=== PATIENT | female | born 1995 | race Hispanic/Latino ===

== ENCOUNTER 2019-06-14 19:24 | Inpatient (IN) | payer MEDICAID ==
[2019-06-14] MEDS ORDERED: LACTATED RINGERS 1,000 ML ONE (21:51)
[2019-06-14] MEDS ORDERED: BRETHINE IVP PRN (22:36)
[2019-06-14] MEDS ORDERED: STADOL IV PRN (22:36)
[2019-06-14] MEDS ORDERED: XYLOCAINE 2% INFILTRATI ONE (22:36)
[2019-06-14] MEDS ORDERED: NARCAN 0.4 MG/1 ML IV PRN (22:36)
[2019-06-14] MEDS ORDERED: BRETHINE SUB-Q PRN (22:36)
[2019-06-14] MEDS ORDERED: PHENERGAN PO PRN (22:36)
[2019-06-14] MEDS ORDERED: MINERAL OIL PO PRN (22:36)
--- NOTE | 2019-06-14 22:43 | History and Physical Report ---
History of Present Illness Date of examination: 06/14/19 Date of admission: 06/14/19 21:59 Chief complaint: contractions History of present illness: This is a 23 yo EDC 06/18/19 at 39+3 here for contractions. She was noted to be 4 cm previous office visit 3cm. patient walked for 1 hr and changed to 5/100/0 and admitted for labor. She is a patient of Dr. Richelle brandon. Chart reviewed. GBS neg. Patient with hx of placent abruption. She smokes vapes daily. Past History Past Medical History: no pertinent history Past Surgical History: section Family/Genetic History: none Social history: single, smoking (vapes). denies: alcohol abuse, prescription drug abuse - Obstetrical History Expected Date of Delivery: 06/18/19 Actual Gestation: 39 Week(s) 3 Day(s) : 6 Para: 3 Hx # Term Pregnancies: 2 Number of Pregnancies: 1 Spontaneous Abortions: 2 Induced : 0 Number of Living Children: 3 Medications and Allergies Allergies Allergy/AdvReac Type Severity Reaction Status Date / Time No Known Allergies Allergy Unverified 06/14/19 21:45 Review of Systems All systems: negative Genitourinary: contractions - Vital Signs Vital signs: Vital Signs Pulse BP 105 H 109/67 06/14/19 19:35 06/14/19 19:35 Temp Pulse Resp BP Pulse Ox 98.5 F 105 H 18 109/67 06/14/19 19:44 06/14/19 19:44 06/14/19 19:44 06/14/19 19:44 - Physical Exam Breasts: Positive: normal Cardiovascular: Regular rate, Normal S1 Lungs: Positive: Clear to auscultation, Normal air movement Abdomen: Positive: normal appearance, soft, normal bowel sounds. Negative: distention, tenderness, guarding Genitourinary (Female): Positive: normal external genitalia, normal perenium Vulva: both: normal Vagina: Positive: normal moisture Uterus: Positive: normal size Anus/Rectum: Positive: normal perianal skin Extremities: Positive: normal Deep Tendon Reflex Grade: Normal +2 - Obstetrical FHR: category 1 Cervical Dilatation: 6 Cervical Effacement Percentage: 100 station: 0 Results All other labs normal. Assessment and Plan A/P IUP 39+3 weeks previous csec. desires IVF, lab GBS neg close monitor of and maternal status expect vaginal delivery
[2019-06-14 23:00] LABS: Mean Corpuscular HGB Conc 34 % (30-34); Mean Corpuscular Volume 87 fl (79-97); Platelet Count 262 K/mm3 (140-440); Red Blood Count 3.79 M/mm3 (3.65-5.03); Red Cell Distribution Width 13.9 % (13.2-15.2)
[2019-06-14] MEDS ORDERED: LACTATED RINGERS 1,000 ML IV SCH (23:00)
[2019-06-14] MEDS ORDERED: PITOCin/NS 30 UNIT/500ML 30 UNITS/500 ML BAG IV SCH ×2 (23:00)
[2019-06-14] MEDS ORDERED: PITOCin/NS 20 UNIT/1000ML DRIP 20 UNITS/1,000 ML BAG IV SCH (23:00)
[2019-06-15] MEDS ORDERED: TUCKS PAD TP PRN (00:31)
[2019-06-15] MEDS ORDERED: DULCOLAX PR PRN (00:31)
[2019-06-15] MEDS ORDERED: PHENERGAN PR PRN (00:31)
[2019-06-15] MEDS ORDERED: BENADRYL PO PRN (00:31)
[2019-06-15] MEDS ORDERED: PERCOCET 5/325 PO PRN (00:31)
[2019-06-15] MEDS ORDERED: TYLENOL PO PRN (00:31)
[2019-06-15] MEDS ORDERED: NORCO 5/325 PO PRN (00:31)
[2019-06-15] MEDS ORDERED: LANSINOH TP PRN (00:31)
[2019-06-15] MEDS ORDERED: TORADOL IV PRN (00:31)
[2019-06-15] MEDS ORDERED: MILK OF MAGNESIA PO PRN (00:31)
[2019-06-15] MEDS ORDERED: ZOFRAN IV PRN (00:31)
[2019-06-15] MEDS ORDERED: PHENERGAN PO PRN (00:31)
--- NOTE | 2019-06-15 00:40 | Procedure Note ---
OB Delivery Note - Delivery Date of Delivery: 06/15/19 Surgeon: MARCUS GRIMES Estimated blood loss: 200cc - Vaginal Delivery presentation: vertex Delivery position: OA Delivery augmentation: rupture of membranes, pitocin Delivery monitor: external FHT, external uterine Route of delivery: Delivery placenta: spontaneous Delivery cord: 3 umbilical vessels Episiotomy: none Delivery laceration: none Delivery repair: vicryl Anesthesia: none Delivery comments: Patient was noted to be c/c/ and and commeced to pushing a viable male Apgars 8 and 9 at 1214. Baby delivered head and shoulders with one push. The cord was clamped and cut and placed on [facility] abdomen. The placenta delivered at 1220 intact with 3 vessel cord. Weight of baby is 6 pounds 15 oz. No lacerations noted. EBL 200 cc. - A at 1 minute: 8 at 5 minutes: 9 Infant Gender: Male (6 pounds 15 oz)
[2019-06-15] MEDS ORDERED: SODIUM CHLORIDE FLUSH SYRINGE 10 ML IV PRN (01:00)
[2019-06-15] MEDS ORDERED: PITOCin/NS 20 UNIT/1000ML DRIP 20 UNITS/1,000 ML BAG IV SCH (01:00)
[2019-06-15] MEDS: SENOKOT S PO SCH ×2 (02:28→18:40)
[2019-06-15] MEDS: IBUPROFEN PO SCH ×4 (02:28→23:57)
[2019-06-15] MEDS: PRENATAL VITAMIN PO SCH (08:36)
[2019-06-15] MEDS ORDERED: COLACE PO SCH (10:00)
[2019-06-15 12:56] LABS: Hematocrit 24.8 % (30.3-42.9); Hemoglobin 8.4 gm/dl (10.1-14.3)
--- NOTE | 2019-06-15 19:03 | Progress Note ---
Assessment and Plan PPD 1 s/p . Doig well. Patient without complaints. Plan for discharge home on tomorrow. Subjective - Subjective Date of service: 06/15/19 Patient reports: appetite normal, voiding normally, pain well controlled, ambulating normally : doing well Objective - Vital Signs Latest vital signs: Vital Signs Temp Pulse Resp BP BP Pulse Ox 06/15/19 16:39 97.9 F 64 18 103/58 06/15/19 11:57 97.9 F 74 18 97/50 98 06/15/19 09:56 97.8 F 67 18 81/45 98 06/15/19 03:28 18 06/15/19 02:28 18 06/15/19 02:08 97.9 F 75 18 94/60 95 06/15/19 01:34 65 107/67 06/15/19 01:29 73 105/64 06/15/19 01:24 82 102/70 06/15/19 01:20 76 104/64 06/15/19 01:14 96 H 105/69 06/15/19 01:09 65 102/65 06/15/19 01:04 68 109/70 06/15/19 00:59 74 110/72 06/15/19 00:54 67 108/72 06/15/19 00:50 76 106/68 06/15/19 00:45 69 106/73 06/15/19 00:43 71 106/72 06/15/19 00:40 80 112/73 06/14/19 23:03 20 06/14/19 19:44 98.5 F 105 H 18 109/67 06/14/19 19:35 105 H 109/67 Intake and Output 06/15/19 06/15/19 06/15/19 06:59 14:59 22:59 Intake Total 130.4 720 Output Total 900 Balance -769.6 720 Intake: IV 10.4 Left Wrist 10 PITOCin/NS 30 UNIT/500ML 0.4 30 units In 500 ml @ 1 MILLIUNITS/MIN 1 mls/hr IV TITR JOHNNA Rx#:[id number] Oral 120 720 Output: Urine 900 Void 900 Other: Total, Intake Amount 120 240 Total, Output Amount 300 # Voids Void 1 Estimated Blood Loss 100 - Exam Breasts: Present: deferred Cardiovascular: Present: Regular rate, Normal S1, Normal S2 Lungs: Present: Clear to auscultation, Normal air movement Abdomen: Present: normal appearance, soft, normal bowel sounds Vulva: both: normal Uterus: Present: normal, firm Extremities: Present: normal Deep Tendon Reflex Grade: Normal +2 - Labs Labs: Abnormal lab results 06/14/19 06/15/19 Range/Units 22:43 12:32 WBC 15.6 H (4.5-11.0) K/mm3 Hgb 8.4 L (10.1-14.3) gm/dl Hct 24.8 L D (30.3-42.9) %
--- NOTE | 2019-06-15 19:04 | Discharge Summary ---
Providers - Providers Date of Admission: 06/14/19 21:59 Date of discharge: 06/16/19 Attending physician: DEONTE TRACY Primary care physician: DEONTE TRACY Hospitalization Reason for admission: active labor Delivery: Laceration: none complications: none Discharge diagnosis: IUP at term delivered baby: male Hospital course: unremarkable Condition at discharge: Good Disposition: DC-01 TO HOME OR SELFCARE Plan - Discharge Medications Prescriptions: Ferrous Sulfate [Feosol 325 MG tab] 325 mg PO BID #30 tablet Ibuprofen [Motrin] 600 mg PO Q8H PRN #30 tablet PRN Reason: Pain oxyCODONE /ACETAMINOPHEN [Percocet 5/325] 1 tab PO Q6HR PRN #30 tablet PRN Reason: Pain - Provider Discharge Summary Activity: routine, no sex for 6 weeks, no heavy lifting 4 weeks, no strenuous exercise Diet: routine Instructions: routine Additional instructions: [] Smoking cessation referral if applicable(refer to patient education folder for contact #) [] Refer to [facility]'s [facility] Booklet Call your doctor immediately for: * Fever > 100.5 * Heavy vaginal bleeding ( >1 pad per hour) * Severe persistent headache * Shortness of breath * Reddened, hot, painful area to leg or breast * Drainage or odor from incision. * Keep incision clean and dry at all times and follow doctor's instructions regarding bathing/showering - Follow up plan Follow up: DEONTE TRACY MD [Primary Care Provider] - 6 Weeks
[2019-06-16] MEDS ORDERED: M-M-R II VACCINE SUB-Q ONE (00:31)
[2019-06-16] MEDS: IBUPROFEN PO SCH ×2 (05:46→12:52)
[2019-06-16] MEDS ORDERED: BOOSTRIX IM ONE (06:00)
[2019-06-16] MEDS: PRENATAL VITAMIN PO SCH (10:00)
[2019-06-16] MEDS: SENOKOT S PO SCH (11:30)
[2019-06-16 14:15] VITALS: BP 112/78
== END 2019-06-16 14:35 | disposition home or self-care (01) | DRG 775 ==
LOC: TRG 19:24 → LD 21:59 → OB 06-15 01:51
PROVIDERS: ADMIT Obstetrics & Gynecology; ATTEND Obstetrics & Gynecology
PROC: 10E0XZZ Delivery of Products of Conception, External Approach (ICD-10-PCS; principal; 2019-06-15)
PROC: 3E0234Z Introduction of Serum, Toxoid and Vaccine into Muscle, Percutaneous Approach (ICD-10-PCS; 2019-06-16)
DX: O34.211 Maternal care for low transverse scar from previous cesarean delivery (principal); Z37.0 Single live birth; Z3A.39 39 weeks gestation of pregnancy; Z23 Encounter for immunization
CPT/HCPCS: 36415; 85014; 85018; 85027; 86592; 86850; 86900; 86901; 88307; 90471; 90715; G0378; J0595; J2590; J7120